=== PATIENT | female | born 1955 ===

== ENCOUNTER → 2022-01-05 08:00 | Outpatient (CLI) | payer OTHER ==
[~2022-01-05] VITALS: Ht 167.6 cm; Wt 75.3 kg
[~2022-01-05 08:00] MED LIST: COZAAR50 MG PO; LIPIT PO; PLAQUINIL PO; SYNTHROID100 MCG PO; SYNTHROID88 MCG; prednisone
== END | disposition home or self-care (01) ==
LOC: LAB 08:00 → SURG 01-10 07:15 → EDSTATUS 01-10 07:15
PROVIDERS: ATTEND Orthopaedic Surgery
DX: M17.12 Unilateral primary osteoarthritis, left knee (principal); Z20.828 Contact with and (suspected) exposure to other viral communicable diseases